=== PATIENT | female | born 1970 | race Caucasian/White ===

== ENCOUNTER 2017-09-16 16:23 | Emergency (ER) | payer OTHER ==
[~2017-09-16] VITALS: Ht 172.7 cm; Wt 68.0 kg
[~2017-09-16 16:23] MED LIST: ALBU90OI INH; AZIT250 PO; Acetaminophen-1 EAC1 PO; BENZ100A PO; CEPH500 PO; CODGUAEL PO; CYCL10; DIPATR PO; Excedrin Extra1 EACH PO; Flagyl500 MG PO; HYDACE10B PO; HYDACE5 PO; HYDR1TAB94 PO; IBUP800 PO; LEVFLO500 PO; LORA1 PO; MEDR10 PO; Maxalt5 MG; Norco 5-325 Ta1 EACH PO; OXYACE5T PO; PROC10 PO; PROM25 PO; Percocet 5-3251 EACH PO; Phenergan25 M1 PO; RIZA PO; RXCODGUASY PO; RXHYDACE PO; SPACER IH; SUMA25 PO; Zofran Odt8 MG SL
[2017-09-16 16:43] LABS: BASOPHILS ABSOLUTE AUTO 0.04 K/mm3 (0.00-0.23); BASOPHILS PERCENT AUTO 1 % (0-2); EOSINOPHILS ABSOLUTE AUTO 0.26 K/mm3 (0.00-0.68); EOSINOPHILS PERCENT AUTO 3 % (0-6); Hematocrit 36.6 % (33.0-51.0); Hemoglobin 11.3 g/dL (11.5-16.0); IMMATURE GRAN ABSOLUTE AUTO 0.03 K/mm3 (0.00-0.10); IMMATURE GRAN PERCENT AUTO 0 % (0-1); LYMPHOCYTES ABSOLUTE AUTO 2.31 K/mm3 (0.84-5.20); LYMPHOCYTES PERCENT AUTO 29 % (21-46); MONOCYTES ABSOLUTE AUTO 0.77 K/mm3 (0.16-1.47); MONOCYTES PERCENT AUTO 10 % (4-13); Mean Corpuscular HGB 23.1 pg (26.0-34.0); Mean Corpuscular HGB Conc 30.9 g/dL (31.5-36.5); Mean Corpuscular Volume 75 fL (80-100); NEUTROPHILS ABSOLUTE AUTO 4.64 K/mm3 (1.96-9.15); NEUTROPHILS PERCENT AUTO 58 % (41-73); Platelet Count 452 K/mm3 (150-400); RDW Coefficient Variation 16.1 % (11.7-14.2); RDW Standard Deviation 43.4 fL (35.1-46.3); White Blood Cell Count 8.05 K/mm3 (4.00-11.30)
[2017-09-16 16:59] LABS: Anion Gap 8 mmol/L (6-16); Blood Urea Nitrogen 12 mg/dL (8-24); Bun/Creatinine Ratio 14.5 (12.0-20.0); CO2, Blood 25 mmol/L (21-32); Calcium, Blood 8.7 mg/dL (8.5-10.1); Chloride, Blood 110 mmol/L (98-108); Creatinine, Blood 0.83 mg/dL (0.40-1.00); Glomerular Filtration Rate >60 (60-); Glucose, Blood 104 mg/dL (70-99); Potassium, Blood 3.8 mmol/L (3.5-5.5); Sodium, Blood 143 mmol/L (136-145)
[2017-09-16] MEDS ORDERED: Norco 5-325 Ta1 EACH PO (17:21)
== END 2017-09-16 17:29 | disposition home or self-care (01) ==
LOC: ER 16:23
PROVIDERS: Emergency Medicine
DX: S06.0X1A Concussion with loss of consciousness of 30 minutes or less, initial encounter (principal); S16.1XXA Strain of muscle, fascia and tendon at neck level, initial encounter; S29.012A Strain of muscle and tendon of back wall of thorax, initial encounter; E78.5 Hyperlipidemia, unspecified; J45.909 Unspecified asthma, uncomplicated; Z79.899 Other long term (current) drug therapy; W01.0XXA Fall on same level from slipping, tripping and stumbling without subsequent striking against object, initial encounter
CPT/HCPCS: 70450; 72070; 72100; 72125; 80048; 85025; 96374; 96375; 99284; J1885; J3010

== ENCOUNTER → 2017-10-01 | Outpatient (CLI) | payer OTHER ==
[2017-10-01 17:13] LABS: Source, Urine Voided
[2017-10-01 17:23] LABS: Bacteria Rare /hpf; Mucus Light (0-Heavy); Red Blood Cells, Urine Not Seen /hpf (0-2); Squamous Epithelial Cells Mod /hpf (Few)
[2017-10-01 17:38] LABS: Free Thyroxine 1.05 ng/dL (0.70-1.60); Thyroid Stimulating Hormone 1.917 uIU/mL (0.360-4.800)
[2017-10-01 18:23] LABS: Prolactin 15.1 ng/mL
[2017-10-01 18:24] LABS: Beta HCG, Quantitative, Serum <1 mIU/mL (0-3)
== END ==
LOC: LAB SHORT 17:11 → LAB EV 17:11
PROVIDERS: Physician Assistant
DX: N91.1 Secondary amenorrhea (principal); R63.5 Abnormal weight gain; R82.79 Other abnormal findings on microbiological examination of urine
CPT/HCPCS: 81015; 83001; 84146; 84439; 84443; 84702; 87086

== ENCOUNTER 2018-06-28 18:56 | Emergency (ER) | payer OTHER ==
[~2018-06-28] VITALS: Ht 167.6 cm; Wt 86.2 kg
[~2018-06-28 18:56] MED LIST changes: +COMPAZINE10 MG PO
[2018-06-28 19:46] LABS: BASOPHILS ABSOLUTE AUTO 0.04 K/mm3 (0.00-0.23); BASOPHILS PERCENT AUTO 1 % (0-2); EOSINOPHILS PERCENT AUTO 1 % (0-6); Hematocrit 39.6 % (33.0-51.0); Hemoglobin 11.9 g/dL (11.5-16.0); IMMATURE GRAN ABSOLUTE AUTO 0.03 K/mm3 (0.00-0.10); IMMATURE GRAN PERCENT AUTO 0 % (0-1); LYMPHOCYTES ABSOLUTE AUTO 2.38 K/mm3 (0.84-5.20); LYMPHOCYTES PERCENT AUTO 29 % (21-46); MONOCYTES ABSOLUTE AUTO 0.57 K/mm3 (0.16-1.47); MONOCYTES PERCENT AUTO 7 % (4-13); Mean Corpuscular HGB 23.9 pg (26.0-34.0); Mean Corpuscular HGB Conc 30.1 g/dL (31.5-36.5); Mean Corpuscular Volume 80 fL (80-100); Mean Platelet Volume 9.8 fL (9.1-12.4); NEUTROPHILS PERCENT AUTO 62 % (41-73); Platelet Count 555 K/mm3 (150-400); RDW Coefficient Variation 14.9 % (11.7-14.2); RDW Standard Deviation 43.1 fL (35.1-46.3); Red Blood Cell Count 4.97 M/mm3 (3.80-5.20); White Blood Cell Count 8.32 K/mm3 (4.00-11.30)
[2018-06-28 20:00] LABS: Alanine Aminotransfer (ALT/SGP 24 U/L (12-78); Albumin, Blood 3.2 g/dL (3.4-5.0); Albumin/Globulin Ratio 0.8 (0.8-1.8); Alk Phos 87 U/L (50-136); Anion Gap 8 mmol/L (6-16); Aspartate Aminotrans (AST/SGOT 23 U/L (12-37); Bilirubin, Total 0.1 mg/dL (0.1-1.0); Blood Urea Nitrogen 13 mg/dL (8-24); Bun/Creatinine Ratio 17.6 (12.0-20.0); CO2, Blood 23 mmol/L (21-32); Calcium, Blood 8.3 mg/dL (8.5-10.1); Chloride, Blood 109 mmol/L (98-108); Creatinine, Blood 0.74 mg/dL (0.40-1.00); Globulin, Blood 3.9 g/dL (2.2-4.0); Glomerular Filtration Rate >60 (60-); Glucose, Blood 107 mg/dL (70-99); Potassium, Blood 3.8 mmol/L (3.5-5.5); Sodium, Blood 140 mmol/L (136-145); Total Protein, Blood 7.1 g/dL (6.4-8.2)
[2018-06-28 20:16] LABS: Source, Urine Clean Catch
[2018-06-28 20:20] LABS: Appearance, Urine Clear (Clear); Bilirubin, Urine Neg (Neg); Blood, Urine Neg (Neg); Color, Urine Yellow (P-Yellow); Glucose Qualitative, Urine Neg (Neg); Ketones, Urine Neg (Neg); Leukocyte Esterase, Urine 1+ (Neg); Nitrite, Urine Neg (Neg); Protein, Urine 4+ (Neg); Urobilinogen, Urine NORM (Normal)
[2018-06-28 20:41] LABS: Bacteria Few /hpf; Red Blood Cells, Urine Not Seen /hpf (0-2); Squamous Epithelial Cells Mod /hpf (Few)
[2018-06-28] MEDS ORDERED: COMPAZINE10 MG PO (21:46)
[2018-06-28] MEDS ORDERED: Norco 5-325 Ta1 EACH PO (21:46)
[2018-06-28] MEDS ORDERED: CEPH500 PO (21:46)
== END 2018-06-28 22:19 | disposition home or self-care (01) ==
LOC: ER 18:56
PROVIDERS: Physician Assistant
DX: N12 Tubulo-interstitial nephritis, not specified as acute or chronic (principal); G43.909 Migraine, unspecified, not intractable, without status migrainosus; E78.5 Hyperlipidemia, unspecified
CPT/HCPCS: 36415; 74177; 80053; 81001; 81025; 83690; 85025; 87086; 96361; 96374-59; 96375; 99284-25; J1170; J2270; J2405; J7030; Q9967

== ENCOUNTER 2019-02-26 21:42 | Inpatient (IN) | payer OTHER ==
[~2019-02-26] VITALS: Ht 172.7 cm; Wt 80.9 kg
[2019-02-26] MEDS ORDERED: Zantac150 MG PO (22:00)
[2019-02-26] MEDS ORDERED: CYCL10 PO (22:01)
[2019-02-26] MEDS ORDERED: LISI20 PO (22:01)
[2019-02-26 23:18] LABS: BASOPHILS ABSOLUTE AUTO 0.04 K/mm3 (0.00-0.23); BASOPHILS PERCENT AUTO 1 % (0-2); EOSINOPHILS ABSOLUTE AUTO 0.12 K/mm3 (0.00-0.68); EOSINOPHILS PERCENT AUTO 2 % (0-6); Hematocrit 39.8 % (33.0-51.0); Hemoglobin 12.7 g/dL (11.5-16.0); IMMATURE GRAN ABSOLUTE AUTO 0.02 K/mm3 (0.00-0.10); IMMATURE GRAN PERCENT AUTO 0 % (0-1); LYMPHOCYTES ABSOLUTE AUTO 2.51 K/mm3 (0.84-5.20); LYMPHOCYTES PERCENT AUTO 32 % (21-46); MONOCYTES ABSOLUTE AUTO 0.76 K/mm3 (0.16-1.47); MONOCYTES PERCENT AUTO 10 % (4-13); Mean Corpuscular HGB 24.7 pg (26.0-34.0); Mean Corpuscular HGB Conc 31.9 g/dL (31.5-36.5); Mean Corpuscular Volume 77 fL (80-100); NEUTROPHILS ABSOLUTE AUTO 4.38 K/mm3 (1.96-9.15); NEUTROPHILS PERCENT AUTO 56 % (41-73); Platelet Count 447 K/mm3 (150-400); RDW Coefficient Variation 15.5 % (11.7-14.2); Red Blood Cell Count 5.14 M/mm3 (3.80-5.20); White Blood Cell Count 7.83 K/mm3 (4.00-11.30)
[2019-02-26 23:33] LABS: International Normalized Ratio 1.02; Prothrombin Time Results 10.8 Sec (9.7-11.5)
[2019-02-26 23:39] LABS: Alanine Aminotransfer (ALT/SGP 27 U/L (12-78); Albumin, Blood 3.2 g/dL (3.4-5.0); Albumin/Globulin Ratio 0.8 (0.8-1.8); Alk Phos 84 U/L (50-136); Anion Gap 8 mmol/L (6-16); Aspartate Aminotrans (AST/SGOT 24 U/L (12-37); Bilirubin, Total 0.1 mg/dL (0.1-1.0); Blood Urea Nitrogen 13 mg/dL (8-24); Bun/Creatinine Ratio 15.8 (12.0-20.0); CO2, Blood 21 mmol/L (21-32); Calcium, Blood 8.5 mg/dL (8.5-10.1); Chloride, Blood 114 mmol/L (98-108); Creatinine, Blood 0.82 mg/dL (0.40-1.00); Globulin, Blood 3.8 g/dL (2.2-4.0); Glomerular Filtration Rate >60 (60-); Glucose, Blood 122 mg/dL (70-99); Magnesium, Blood 1.9 mg/dL (1.6-2.4); Potassium, Blood 3.6 mmol/L (3.5-5.5); Sodium, Blood 143 mmol/L (136-145); Troponin I <0.015 ng/mL (0.000-0.040)
[2019-02-27 00:26] LABS: Source, Urine Catheter
[2019-02-27 00:32] LABS: Bilirubin, Urine Neg (Neg); Blood, Urine Neg (Neg); Glucose Qualitative, Urine Neg (Neg); Ketones, Urine Neg (Neg); Leukocyte Esterase, Urine Neg (Neg); Nitrite, Urine Neg (Neg); Protein, Urine 4+ (Neg); Urobilinogen, Urine NORM (Normal)
[2019-02-27 00:37] LABS: Appearance, Urine Clear (Clear); Color, Urine Yellow (P-Yellow)
[2019-02-27 00:38] LABS: Bacteria Not Seen /hpf; Red Blood Cells, Urine Not Seen /hpf (0-2); Squamous Epithelial Cells Not Seen /hpf (Few); White Blood Cells, Urine 0-2 /hpf (0-5)
[2019-02-27 00:41] LABS: U Amphetamine Screen Not Detected; U Barbituate Screen Not Detected; U Benzodiazapine Screen Not Detected; U Buprenorphine Screen Not Detected; U Cannabinoids Screen Not Detected; U Cocaine Screen Not Detected; U Methadone Screen Not Detected; U Methamphetamine Screen Not Detected; U Opiates Screen Not Detected; U Oxycodone Screen Not Detected; U Phencyclidine Screen Not Detected; U Propoxyphene Screen Not Detected
[2019-02-27 04:34] LABS: Hematocrit 39.9 % (33.0-51.0); Hemoglobin 12.4 g/dL (11.5-16.0); Mean Corpuscular HGB 23.8 pg (26.0-34.0); Mean Corpuscular HGB Conc 31.1 g/dL (31.5-36.5); Mean Corpuscular Volume 76 fL (80-100); Platelet Count 428 K/mm3 (150-400); RDW Coefficient Variation 15.4 % (11.7-14.2); RDW Standard Deviation 42.1 fL (35.1-46.3); Red Blood Cell Count 5.22 M/mm3 (3.80-5.20); White Blood Cell Count 11.21 K/mm3 (4.00-11.30)
[2019-02-27 05:02] LABS: Alanine Aminotransfer (ALT/SGP 25 U/L (12-78); Albumin/Globulin Ratio 0.8 (0.8-1.8); Alk Phos 80 U/L (50-136); Anion Gap 7 mmol/L (6-16); Aspartate Aminotrans (AST/SGOT 23 U/L (12-37); Bilirubin, Total <0.1 mg/dL (0.1-1.0); Blood Urea Nitrogen 11 mg/dL (8-24); Bun/Creatinine Ratio 13.8 (12.0-20.0); CO2, Blood 21 mmol/L (21-32); Calcium, Blood 8.4 mg/dL (8.5-10.1); Chloride, Blood 115 mmol/L (98-108); Globulin, Blood 3.9 g/dL (2.2-4.0); Glomerular Filtration Rate >60 (60-); Glucose, Blood 125 mg/dL (70-99); Potassium, Blood 4.4 mmol/L (3.5-5.5); Sodium, Blood 143 mmol/L (136-145); Total Protein, Blood 6.9 g/dL (6.4-8.2)
--- NOTE | 2019-02-27 07:36 | NUR ---
Shift Summary: Patient was admitted last night from the ED for new onset of speech difficulty and weakness. On arrival to the Medical Unit, the patient demonstrated right side hemiparesis that was not reported during handoff. Noted right facial droop, dysarthria, right arm drift, and right leg drift. Symptoms were immediately reported to Dr. Ramos. No new orders were received. Routine MRI scheduled.
[2019-02-27 16:54] LABS: CHOL/HDL RATIO 5.2; Cholesterol 224 mg/dL (50-200); HDL Cholesterol 43 mg/dL (>39); LDL/HDL RATIO 3.6; Low Density Lipoprotein Chol 153 mg/dL (0-110); Triglycerides 138 mg/dL (30-160); Very Low Density Lipoprot Chol 27 mg/dL (6-32)
--- NOTE | 2019-02-27 19:04 | NUR ---
SHIFT SUMMARY: MRI OF HEAD THIS SHIFT -- PONTINE INFARCT; PER HOSPITALIST (DR BOUCHER) NO ANTIHYPERTENSIVES UNTIL 02/28 DAY SHIFT. NS @ 75 CONTINUING. BEDSIDE SWALLOW EVAL; PUREE DIET; HONEY THICK LIQUIDS; UPRIGHT & ALERT FOR ORAL INTAKE; MEDS WHOLE IN APPLE SAUCE; NO STRAWS. REPORT GIVEN TO ONCOMING RN.
[2019-02-28 04:39] LABS: BASOPHILS ABSOLUTE AUTO 0.03 K/mm3 (0.00-0.23); BASOPHILS PERCENT AUTO 0 % (0-2); EOSINOPHILS ABSOLUTE AUTO 0.02 K/mm3 (0.00-0.68); EOSINOPHILS PERCENT AUTO 0 % (0-6); Hematocrit 39.7 % (33.0-51.0); Hemoglobin 12.2 g/dL (11.5-16.0); IMMATURE GRAN ABSOLUTE AUTO 0.02 K/mm3 (0.00-0.10); IMMATURE GRAN PERCENT AUTO 0 % (0-1); LYMPHOCYTES ABSOLUTE AUTO 1.44 K/mm3 (0.84-5.20); LYMPHOCYTES PERCENT AUTO 16 % (21-46); MONOCYTES ABSOLUTE AUTO 0.66 K/mm3 (0.16-1.47); MONOCYTES PERCENT AUTO 8 % (4-13); Mean Corpuscular HGB 24.2 pg (26.0-34.0); Mean Corpuscular HGB Conc 30.7 g/dL (31.5-36.5); Mean Platelet Volume 10.2 fL (9.1-12.4); NEUTROPHILS ABSOLUTE AUTO 6.65 K/mm3 (1.96-9.15); NEUTROPHILS PERCENT AUTO 76 % (41-73); Platelet Count 415 K/mm3 (150-400); RDW Coefficient Variation 15.9 % (11.7-14.2); RDW Standard Deviation 45.1 fL (35.1-46.3); Red Blood Cell Count 5.05 M/mm3 (3.80-5.20); White Blood Cell Count 8.82 K/mm3 (4.00-11.30)
[2019-02-28 04:41] LABS: Mean Corpuscular Volume 79 fL (80-100)
--- NOTE | 2019-02-28 04:59 | NUR ---
Shift Summary: Patient slept intermittently between cares. She continues to demonstrate right sided weakness, facial droop, and slurred speech. She also reported some right sided dullness of sensation. She ambulates to the bathroom with 1 assist GBW and is able to make her needs known.
[2019-02-28 05:03] LABS: Anion Gap 7 mmol/L (6-16); Blood Urea Nitrogen 8 mg/dL (8-24); Bun/Creatinine Ratio 10.6 (12.0-20.0); CO2, Blood 24 mmol/L (21-32); Calcium, Blood 8.8 mg/dL (8.5-10.1); Chloride, Blood 113 mmol/L (98-108); Creatinine, Blood 0.76 mg/dL (0.40-1.00); Glomerular Filtration Rate >60 (60-); Glucose, Blood 106 mg/dL (70-99); Potassium, Blood 4.1 mmol/L (3.5-5.5); Sodium, Blood 144 mmol/L (136-145)
[2019-02-28 05:08] LABS: Thyroid Stimulating Hormone 0.979 uIU/mL (0.360-4.800)
--- NOTE | 2019-02-28 14:56 | NUR ---
ECHOCARDIOGRAM COMPLETE
--- NOTE | 2019-02-28 19:23 | NUR ---
SHIFT SUMMARY: NO ACUTE CHANGES TO REPORT THIS SHIFT. PT ALERT; R SIDE WEAK; SLURRED SPEECH; PT UP WITH 1-ASSIST c FWW - UNCOORDINATED GAIT. SWALLOW PRECAUTIONS IN EFFECT AWAITING SWALLOW EVAL. TELE IN PLACE; SR @ 77 PER HAIR AND MAKEUP DESIGNER DURING MORNING ASSESSMENT. IV ABX CONTINUING. REPORT GIVEN TO ONCOMING RN.
--- NOTE | 2019-03-01 05:48 | NUR ---
SHIFT SUMMARY PATIENT EXPERIENCED URINARY URGENCY THIS SHIFT. SHE FELT IF SHE NEEDED TO VOID ALMOST HOURLY BUT ONLY HAD TWO TRIPS TO THE BATHROOM WHERE SHE WAS ABLE TO VOID. BLADDER SCAN DONE AFTER ONE UNSUCCESSFUL TRIP TO THE BATHROOM WHICH REVEALED 175 ML IN BLADDER. PATIENT ON TELE, RATE AND RHYTHM WAS SINUS BRADYCARDIA W/PAC AT 57. IV ACCESS IN LEFT AC PATENT. CALL LIGHT AND BELONGINGS WITHIN REACH. REPORT GIVEN TO ONCOMING RN.
--- NOTE | 2019-03-01 11:42 | NUR ---
SHE IS SLEEPING NOW BUT HAS AMBULATED TO THE BATHROOM, SAT IN A CHAIR FOR BREAKFAST, GONE BACK TO BED THEN UP AGAIN TO WORK WITH PT. SHE HAD A VERY BUSY MORNING. HER SPEECH IS GARBLED BUT APPROPRIATE. HER R SIDE IS WEAK. BOTH KNEES, ESPECIALLY THE RIGHT, SEEMED UNSTABLE FAR POTENTIALLY BUCKLING WHEN SHE WALKED. SHE BALANCED HERSELF FINE IN THE CHAIR. SHE WASN'T VERY INTERESTED IN BREAKFAST. THE ST EVALUATED HER. ORDERS RECEIVED. SHE NEEDS ASSIST WITH ALL ADL'S. IT SOUNDS LIKE HER WANTS HER HOME, NOT REHAB. TELE IS NSR. BP STILL RUNS HIGH. WAS HERE TO ROUND ON HER WITH FAMILY PRESENT.
--- NOTE | 2019-03-01 16:40 | NUR ---
SHE HAS WORKED WITH ALL 3 THERAPIES TODAY. HER HAS BEEN HERE ALL DAY WITH A FEW SHORT BREAKS. OTHER FAMILY MEMBERS AND FRIENDS HAVE ALSO VISITED FOR SHORT TIMES. SHE HAS NAPPED IN BETWEEN EACH OF THESE ACTIVITIES. SHE HAS SLURRED SPEECH. SHE DENIES ANY H/A, N/T OR PAIN. R-SIDED WEAKNESS EVIDENT. PT HAS NOT CLEARED HER FOR AMBULATION WITH NURSING OR A SHOWER YET. SHE DOES, HOWEVER, BALANCE INDEPENDENTLY SITTING ON THE SIDE OF THE BED OR IN A CHAIR. SHE AND HER DO NOT WANT HER GOING OUT OF TOWN WHERE ACUTE THERAPY IS PROVIDED. TELE NSR. BP STABLE THIS SHIFT. SHE HATES HER PUREE DIET. ENGINEERING OPERATIONS LEADER TRIED A COUPLE OF TIMES TO CONSULT WITH HER BUT ELVIS WAS UNAVAILABLE EACH TIME. PIA DID EAT A WHOLE MAGIC CUP THIS AFTERNOON.
--- NOTE | 2019-03-01 18:02 | NUR ---
SHE HAD 2 UNSUCCESSFUL ATTEMPTS AT VOIDING TODAY. THIS EVENING SHE VOIDED 100 MLS THEN BLADDER SCAN SHOWED PVR OF 71 MLS. HER IS FEEDING HER SOME DINNER NOW.
--- NOTE | 2019-03-01 22:31 | NUR ---
RECIEVED T.O. FROM DR. COFFEY. NEW ORDER FOR DEXAMETHASONE ADDED TO ORDERS. ORDER TO BEGIN TONIGHT.
[2019-03-02 05:35] LABS: BASOPHILS ABSOLUTE AUTO 0.03 K/mm3 (0.00-0.23); BASOPHILS PERCENT AUTO 0 % (0-2); EOSINOPHILS PERCENT AUTO 0 % (0-6); Hematocrit 43.4 % (33.0-51.0); Hemoglobin 13.6 g/dL (11.5-16.0); IMMATURE GRAN ABSOLUTE AUTO 0.03 K/mm3 (0.00-0.10); IMMATURE GRAN PERCENT AUTO 0 % (0-1); LYMPHOCYTES ABSOLUTE AUTO 0.79 K/mm3 (0.84-5.20); LYMPHOCYTES PERCENT AUTO 9 % (21-46); MONOCYTES ABSOLUTE AUTO 0.11 K/mm3 (0.16-1.47); MONOCYTES PERCENT AUTO 1 % (4-13); Mean Corpuscular HGB 24.1 pg (26.0-34.0); Mean Corpuscular HGB Conc 31.3 g/dL (31.5-36.5); Mean Corpuscular Volume 77 fL (80-100); Mean Platelet Volume 10.4 fL (9.1-12.4); NEUTROPHILS ABSOLUTE AUTO 8.37 K/mm3 (1.96-9.15); NEUTROPHILS PERCENT AUTO 90 % (41-73); Platelet Count 478 K/mm3 (150-400); RDW Standard Deviation 43.9 fL (35.1-46.3); Red Blood Cell Count 5.65 M/mm3 (3.80-5.20); White Blood Cell Count 9.33 K/mm3 (4.00-11.30)
--- NOTE | 2019-03-02 05:44 | NUR ---
SHIFT SUMMARY: PT A/OX3. FAMILY AT BEDSIDE. PT MAKING NEEDS KNOWN. BED ALARM ON BUT PT WAITING FOR ASSISTANCE PRIOR TO ATTEMPTING T/F. SPEECH DIFFICULT TO UNDERSTAND. PT VERBALIZING STRESS ABOUT POSSIBLE DISCHARGE TO [place]. STATES [place] AND [place] NO MEANS OF TRANSPORT TO VISIT HER THERE. SHE BECAME TEARFUL ABOUT THIS. HEADACHE AT THE START OF THE EVENING. IBUPROFEN GIVEN WITH MINIMAL EFFECT. PT STATES SHE CAN TOLERATE PAIN AND WOULD JUST LIKE TO SLEEP RATHER THAN SEEK STRONGER PAIN MANAGEMENT. SLEPT MUCH OF NIGHT. CONTINENT OF URINE. PIVOT T/F WITH 2 MAX ASSIST, GAIT BELT, AND WALKER. RIGHT SIDED WEAKNESS. REPORTS PAIN SENSATION IN BOTH RIGHT FOOT AND RIGHT ARM. REQUESTING FLUIDS AND TOLERATING THICKENED TEXTURE WELL. COOPERATIVE WITH POSITION RESTRICTIONS FOR PO INTAKE. REQUESTING TO GET UP TO CHAIR AT BEDSIDE AT THIS TIME. CALL BUTTON IN REACH.
[2019-03-02 05:46] LABS: Anion Gap 7 mmol/L (6-16); Blood Urea Nitrogen 19 mg/dL (8-24); Bun/Creatinine Ratio 24.9 (12.0-20.0); CO2, Blood 24 mmol/L (21-32); Calcium, Blood 9.5 mg/dL (8.5-10.1); Chloride, Blood 109 mmol/L (98-108); Creatinine, Blood 0.76 mg/dL (0.40-1.00); Glomerular Filtration Rate >60 (60-); Glucose, Blood 155 mg/dL (70-99); Sodium, Blood 140 mmol/L (136-145)
--- NOTE | 2019-03-02 16:21 | NUR ---
SHE HAS WORKED WITH ST THEN OT THEN PT TODAY. SHE HAS HAD A BEDBATH AND LINEN CHANGE. SHE HAS EATEN A LITTLE MORE FOOD TODAY. SWALLOWING PRECAUTIONS UNCHANGED TODAY. TELE ST WITH ACTIVITY. METOPROLOL STARTED AND DECADRON STOPPED. LABS WNL. GLUC WAS 155. NO PRN APRESOLINE GIVEN THIS AM BECAUSE SHE WAS DUE FOR HER SCHEDULED LISINOPRIL.
--- NOTE | 2019-03-03 01:14 | NUR ---
Assisted (2 person) to and from bedside commode. Note pt moving RLE more than noted at shift commence. Right side remains very weak.
--- NOTE | 2019-03-03 04:08 | NUR ---
PT HAS BEEN RESTING QUIETLY WITH OCCASIONAL NEED FOR ASSIST TO THE BEDSIDE COMMODE FOR VOIDING. NOTED ABILITY TO USE RLE SLIGHTLY BETTER IN THE SHIFT THAN NOTED AT SHIFT COMMENCE. STILL RIGHT SIDE FACIAL DROOPING. SIGNIFICANT OTHER AT BEDSIDE FOR MORAL SUPPORT. AFFECT/MOOD LABILE. CALL LIGHT IN REACH.
--- NOTE | 2019-03-03 05:11 | NUR ---
TELE CALLED, JORDY BUCIOWCarmella TO 50'S. UPON ASSESSMENT IN ROOM. ASYMPTOMATIC. RESTING QUIETLY.
--- NOTE | 2019-03-03 05:53 | NUR ---
MED TELE CALLED, HR TRENDING INTO HIGH 40'S. NURSE ENTERED ROOM AND WOKE UP PT. PT DENIED DISCOMFORT, WARM BLANKETS APPLIED. HR BACK UP INTO 80'S. ASYMPTOMATIC.
[2019-03-03] MEDS ORDERED: CLOP75 PO (13:49)
[2019-03-03] MEDS ORDERED: ATOR40TA PO (13:49)
[2019-03-03] MEDS ORDERED: ASPI81CH PO (13:49)
[2019-03-03] MEDS ORDERED: METO25ER PO (13:50)
--- NOTE | 2019-03-03 16:17 | NUR ---
DISCHARGE NOTE [facility] REPORT CALLED TO [facility] AT 1615. PT LEFT ROOM AT 1605 VIA [facility]. IV DC'D AND BELONGINGS RETURNED. SPOUSE AND FATHER PRESENT DURING TRANSFER.
== END 2019-03-03 16:09 | DRG 64 ==
LOC: ER 21:42 → MEDS 21:43
PROVIDERS: Emergency Medicine; Family Medicine; ADMIT Internal Medicine
DX: I63.29 Cerebral infarction due to unspecified occlusion or stenosis of other precerebral arteries (principal); G93.41 Metabolic encephalopathy; G81.91 Hemiplegia, unspecified affecting right dominant side; R47.1 Dysarthria and anarthria; R29.810 Facial weakness; I10 Essential (primary) hypertension; E78.5 Hyperlipidemia, unspecified; G43.909 Migraine, unspecified, not intractable, without status migrainosus; M19.90 Unspecified osteoarthritis, unspecified site; Z88.0 Allergy status to penicillin
CPT/HCPCS: 36415; 70450; 70496; 70553; 71045; 80048; 80053; 80061; 81001; 81025; 83036; 83735; 84145; 84443; 84484; 85025; 85027; 85610; 85651; 85730; 86140; 90686; 92526; 92610; 93005; 93010; 93306; 96361; 96365; 96366; 96372; 96374; 96375; 97110; 97112; 97162; 97166; 97530; 97535; 99285-25; A9270; A9577; G0008; G0378; G0480; J0780; J1100; J1200; J1650; J2405; J3010; J7030; J7050; P9612; Q9967

== ENCOUNTER → 2021-07-24 | Outpatient (CLI) | payer OTHER ==
[~2021-07-24] MED LIST changes: +ASPI81CH PO; +ATOR40TA PO; +CLOP75 PO; +CYCL10 PO; +LISI20 PO; +METO25ER PO; +Zantac150 MG PO
== END | disposition home or self-care (01) ==
LOC: LAB SHORT 15:47 → PLD 15:47
DX: C43.61 Malignant melanoma of right upper limb, including shoulder (principal)
CPT/HCPCS: 88305

== ENCOUNTER 2021-08-09 01:56 | Emergency (ER) | payer OTHER ==
[~2021-08-09] VITALS: Ht 170.2 cm; Wt 82.1 kg
[2021-08-09 03:15] LABS: BASOPHILS ABSOLUTE AUTO 0.04 K/mm3 (0.00-0.23); BASOPHILS PERCENT AUTO 0 % (0-2); EOSINOPHILS ABSOLUTE AUTO 0.13 K/mm3 (0.00-0.68); EOSINOPHILS PERCENT AUTO 1 % (0-6); Hematocrit 42.1 % (33.0-51.0); IMMATURE GRAN ABSOLUTE AUTO 0.06 K/mm3 (0.00-0.10); IMMATURE GRAN PERCENT AUTO 1 % (0-1); LYMPHOCYTES ABSOLUTE AUTO 1.81 K/mm3 (0.84-5.20); LYMPHOCYTES PERCENT AUTO 19 % (21-46); MONOCYTES PERCENT AUTO 8 % (4-13); Mean Corpuscular HGB 29.2 pg (26.0-34.0); Mean Corpuscular HGB Conc 33.3 g/dL (31.5-36.5); Mean Corpuscular Volume 88 fL (80-100); Mean Platelet Volume 9.9 fL (9.1-12.4); NEUTROPHILS ABSOLUTE AUTO 6.86 K/mm3 (1.96-9.15); NEUTROPHILS PERCENT AUTO 71 % (41-73); Platelet Count 355 K/mm3 (150-400); RDW Coefficient Variation 12.8 % (11.7-14.2); RDW Standard Deviation 41.8 fL (35.1-46.3); Red Blood Cell Count 4.79 M/mm3 (3.80-5.20)
[2021-08-09 03:32] LABS: Alanine Aminotransfer (ALT/SGP 40 U/L (12-78); Albumin, Blood 3.9 g/dL (3.4-5.0); Alk Phos 129 U/L (50-136); Anion Gap 8 mmol/L (6-16); Aspartate Aminotrans (AST/SGOT 24 U/L (12-37); Bilirubin, Total 0.3 mg/dL (0.1-1.0); Blood Urea Nitrogen 25 mg/dL (8-24); CO2, Blood 26 mmol/L (21-32); Calcium, Blood 9.8 mg/dL (8.5-10.1); Chloride, Blood 106 mmol/L (98-108); Creatinine, Blood 0.96 mg/dL (0.40-1.00); Globulin, Blood 3.9 g/dL (2.2-4.0); Glomerular Filtration Rate >60 (60-); Glucose, Blood 138 mg/dL (70-99); Potassium, Blood 4.1 mmol/L (3.5-5.5); Sodium, Blood 140 mmol/L (136-145); Total Protein, Blood 7.8 g/dL (6.4-8.2)
== END 2021-08-09 05:58 | disposition home or self-care (01) ==
LOC: ER 01:56
PROVIDERS: Emergency Medicine
DX: R55 Syncope and collapse (principal); S09.90XA Unspecified injury of head, initial encounter; S16.1XXA Strain of muscle, fascia and tendon at neck level, initial encounter; S39.012A Strain of muscle, fascia and tendon of lower back, initial encounter; E04.1 Nontoxic single thyroid nodule; G43.909 Migraine, unspecified, not intractable, without status migrainosus; J45.909 Unspecified asthma, uncomplicated; E78.5 Hyperlipidemia, unspecified; M19.90 Unspecified osteoarthritis, unspecified site; Z87.440 Personal history of urinary (tract) infections; Z88.0 Allergy status to penicillin; Z79.82 Long term (current) use of aspirin; Z79.899 Other long term (current) drug therapy; W19.XXXA Unspecified fall, initial encounter
CPT/HCPCS: 36415; 70450; 71045; 72125; 72131; 80053; 83880; 84484; 85025; 93005; 93010; 99285-25; J7030

== ENCOUNTER 2022-03-15 04:25 | Emergency (ER) | payer OTHER ==
[~2022-03-15] VITALS: Ht 170.2 cm; Wt 81.7 kg
[2022-03-15 05:26] LABS: BASOPHILS ABSOLUTE AUTO 0.05 K/mm3 (0.00-0.23); BASOPHILS PERCENT AUTO 0 % (0-2); EOSINOPHILS ABSOLUTE AUTO 0.14 K/mm3 (0.00-0.68); EOSINOPHILS PERCENT AUTO 1 % (0-6); Hemoglobin 11.8 g/dL (11.5-16.0); IMMATURE GRAN ABSOLUTE AUTO 0.07 K/mm3 (0.00-0.10); IMMATURE GRAN PERCENT AUTO 1 % (0-1); LYMPHOCYTES ABSOLUTE AUTO 1.57 K/mm3 (0.84-5.20); LYMPHOCYTES PERCENT AUTO 12 % (21-46); MONOCYTES ABSOLUTE AUTO 0.89 K/mm3 (0.16-1.47); MONOCYTES PERCENT AUTO 7 % (4-13); Mean Corpuscular HGB 29.4 pg (26.0-34.0); Mean Corpuscular HGB Conc 33.7 g/dL (31.5-36.5); Mean Corpuscular Volume 87 fL (80-100); NEUTROPHILS ABSOLUTE AUTO 10.68 K/mm3 (1.96-9.15); NEUTROPHILS PERCENT AUTO 80 % (41-73); Platelet Count 394 K/mm3 (150-400); RDW Coefficient Variation 12.3 % (11.7-14.2); RDW Standard Deviation 39.6 fL (35.1-46.3); Red Blood Cell Count 4.01 M/mm3 (3.80-5.20)
[2022-03-15 05:43] LABS: Albumin, Blood 3.4 g/dL (3.4-5.0); Albumin/Globulin Ratio 0.9 (0.8-1.8); Bilirubin, Total 0.4 mg/dL (0.1-1.0); Calcium, Blood 9.5 mg/dL (8.5-10.1); Globulin, Blood 3.7 g/dL (2.2-4.0); Potassium, Blood 4.5 mmol/L (3.5-5.5); Total Protein, Blood 7.1 g/dL (6.4-8.2)
[2022-03-15 05:43] LABS: Source, Urine Straight Cath
[2022-03-15 05:54] LABS: Bilirubin, Urine Neg (Neg); Blood, Urine Neg (Neg); Glucose Qualitative, Urine Neg (Neg); Ketones, Urine Neg (Neg); Leukocyte Esterase, Urine 1+ (Neg); Nitrite, Urine Neg (Neg); Protein, Urine 2+ (Neg); Urobilinogen, Urine NORM (Normal)
[2022-03-15 06:00] LABS: Appearance, Urine Clear (Clear); Color, Urine Pale Yellow (P-Yellow)
[2022-03-15 06:02] LABS: Bacteria Few /hpf; Red Blood Cells, Urine 0-2 /hpf (0-2); Squamous Epithelial Cells Not Seen /hpf (Few); Transitional Epithelial Cells Few /hpf (0-Rare)
[2022-03-15] MEDS ORDERED: METR500 PO (07:04)
[2022-03-15] MEDS ORDERED: CIPR500 PO (07:04)
[2022-03-15] MEDS ORDERED: OXYC5 PO (07:04)
== END 2022-03-15 08:16 | disposition home or self-care (01) ==
LOC: ER 04:25
PROVIDERS: Emergency Medicine
DX: K57.32 Diverticulitis of large intestine without perforation or abscess without bleeding (principal); I10 Essential (primary) hypertension; G43.909 Migraine, unspecified, not intractable, without status migrainosus; Z79.899 Other long term (current) drug therapy; Z79.82 Long term (current) use of aspirin; Z79.02 Long term (current) use of antithrombotics/antiplatelets
CPT/HCPCS: 36415; 74177; 80053; 81001; 83690; 85025; 87077; 87086; 87186; A9270; J1170; J1885; J2405; J7030; Q9967